=== PATIENT | male | born 1975 | race Caucasian/White ===

== ENCOUNTER 2024-09-27 13:46 | Emergency (ER) | payer SELFPAY ==
[~2024-09-27] VITALS: Ht 172.7 cm; Wt 90.0 kg
[2024-09-27 13:53] VITALS: O2SAT 98
[2024-09-27 14:14] VITALS: BP 169/99; PULSE 84; RESP 16; TEMP 36.6; O2SAT 97
[2024-09-27] MEDS ORDERED: HYDR50TA55 PO (14:26)
[2024-09-27 14:42] LABS: BASOPHILS % 0.4 % (0.0-2.0); EOSINOPHILS % 0.1 % (0.0-5.0); HEMATOCRIT. 43.2 % (42.0-52.0); HEMOGLOBIN. 14.9 g/dL (14.0-18.0); LYMPHOCYTES % 10.2 % (20.0-50.0); MEAN CORPUSCULAR HEMOGLOBIN 30.4 pg (28.0-32.0); MEAN CORPUSCULAR HGB CONC 34.6 g/dL (31.0-37.0); MEAN CORPUSCULAR VOLUME 87.9 fL (80.0-94.0); MEAN PLATELET VOLUME 8.1 fl (7.4-10.4); MONOCYTES % 4.7 % (2.0-8.0); NEUTROPHILS % 84.6 % (40.0-76.0); PLATELET 333 x1000/uL (130-400); RED BLOOD CELL COUNT 4.91 mill/uL (4.7-6.1); RED CELL DISTRIBUTION WIDTH 13.3 % (11.6-14.6); WHITE BLOOD COUNT 9.6 x1000/uL (4.5-11.0)
[2024-09-27 14:56] LABS: CHLORIDE 104 mEq/L (98-107); POTASSIUM 3.6 mEq/L (3.5-5.1); SODIUM 136 mEq/L (136-145)
[2024-09-27 14:57] LABS: CALCIUM 9.5 mg/dL (8.7-10.4); CARBON DIOXIDE 22 mEq/L (21-32)
[2024-09-27 15:02] LABS: CREATININE 0.7 mg/dL (0.6-1.3); GLUCOSE 142 mg/dL (70-105)
[2024-09-27 15:04] LABS: ALANINE AMINOTRANSFERASE 24 IU/L (10-49); ALBUMIN 4.5 g/dL (3.2-4.8); ASPARTATE AMINOTRANSFERASE 21 IU/L (<34); BILIRUBIN TOTAL 0.8 mg/dL (0.1-1.0); PROTEIN TOTAL 8.5 g/dL (6.0-8.3)
[2024-09-27 15:14] LABS: TROPONIN I HIGH SENSITIVITY < 4 ng/L (3.0-53); UREA NITROGEN BLOOD < 5 mg/dL (9-23)
== END 2024-09-27 14:33 | disposition home or self-care (01) ==
LOC: ER 13:46
DX: F41.9 Anxiety disorder, unspecified (principal); G47.00 Insomnia, unspecified
CPT/HCPCS: 36415; 80053; 84484; 85025; 93005; 99283; 99284